=== PATIENT | female | born 1960 | race Caucasian/White ===

== ENCOUNTER 2023-03-24 15:28 | Outpatient (CLI) | payer MEDICARE, OTHER, SELFPAY ==
--- NOTE | ~2023-03-24 | XR_ITS ---
XR finger 4th LT min 2V DATE: 03/24/2023 15:45 INDICATION: Fourth digit injury TECHNIQUE: AP and lateral views COMPARISON: None FINDINGS: There is a comminuted fracture of the tuft of the distal phalanx with up to approximately 1 .5 mm lateral displacement of the lateral-most fragment but little displacement otherwise. No other fracture or dislocation. There is joint space narrowing at the distal interphalangeal joints of the third and fourth digit with osteoarthritis. IMPRESSION: Comminuted tuft fracture of distal phalanx of fourth digit Reviewed, dictated and finalized at location L. [facility] INSPECTOR
== END 2023-03-24 15:29 | disposition home or self-care (01) ==
PROVIDERS: PCP Internal Medicine; Visit Provider Plastic Surgery
DX: S62.635A Displaced fracture of distal phalanx of left ring finger, initial encounter for closed fracture (principal); X58.XXXA Exposure to other specified factors, initial encounter
CPT/HCPCS: 73140